=== PATIENT | female | born 1950 | race Caucasian/White ===

== ENCOUNTER 2024-08-23 14:39 | Inpatient (IN) | payer OTHER ==
[~2024-08-23] VITALS: Ht 157.5 cm; Wt 101.7 kg
--- NOTE | 2024-08-23 15:43 | ED.PDOC ---
General HPI Comments 74 y/o F, with PMHx of bladder cancer, HTN, and COPD presents to the ED for CC of s/p operative complications. Patient relays, that she had a bladder procedure done by on Friday (08/18/24); and has had urinary retention with associated blood clots. Patient reports, that she currently has a Yee Catheter however, it is not emptying. Patient complains of current 4/10 pain. Patient denies nausea, vomiting, back pain, abdominal pain, or abdominal distension. No other symptoms or modifying factors present at this time. Chief Complaint: Urinary Time Seen by MD: 15:35 Reviewed notes: Nurses Notes, Medications, Allergies Allergies: Coded Allergies: NO KNOWN ALLERGIES (Unverified , 08/23/24) Information Source: Patient Mode of Arrival: Wheelchair Severity: Moderate Timing: Days Duration: Since onset Prehospital treatment: None Onset: Spontaneous Symptoms: Hematuria, Inability to void History of: Recent post-op Location: None Modifying factors: None associated signs and symptoms: Hematuria Past Medical History PAST MEDICAL HISTORY: Cancer, COPD, HTN Surgical History: Tubal Ligation AIR TESTER History: Denies all AIR TESTER Hx Family History Family History: Unknown Social History Smoker: Non-Smoker Alcohol: Denies ETOH Use Drugs: Denies Drug Use Lives In: Home Constitutional: denies: chills, diaphoresis, fatigue, fever, malaise, sweats, weakness, others EENTM: denies: blurred vision, double vision, ear bleeding, ear discharge, ear drainage, ear pain, ear ringing, eye pain, eye redness, hearing loss, mouth pain, mouth swelling, nasal discharge, nose bleeding, nose congestion, nose pain, photophobia, tearing, throat pain, throat swelling, voice changes, others Respiratory: denies: cough, hemoptysis, orthopnea, SOB at rest, shortness of breath, SOB with excertion, stridor, wheezing, others Cardiovascular: denies: chest pain, dizzy spells, diaphoresis, Dyspnea on exertion, edema, irregular heart beat, left arm pain, lightheadedness, palpitations, PND, syncope, others Gastrointestinal: denies: abdomen distended, abdominal pain, blood streaked bowels, constipated, diarrhea, dysphagia, difficulty swallowing, hematemesis, melena, nausea, poor appetite, poor fluid intake, rectal bleeding, rectal pain, vomiting, others Genitourinary: reports: hematuria, others (urinary retention); denies: abnormal vagina bleeding, burning, dyspareunia, dysuria, flank pain, frequency, incontinence, pain, , vagina discharge, urgency Neurological: denies: dizziness, fainting, headache, left sided numbness, left sided weakness, numbness, paresthesia, pre-existing deficit, right sided numbness, right sided weakness, seizure, speech problems, tingling, tremors, weakness, others Musculoskeletal: denies: back pain, gout, joint pain, joint swelling, muscle pain, muscle stiffness, neck pain, others Integumetry: denies: bruises, change in color, change in hair/nails, dryness, laceration, lesions, lumps, rash, wounds, others Allergic/Immunocompromised: denies: Difficulty Healing, Frequent Infections, Hives, Itching, others Hematologic/Lymphatic: denies: anemia, blood clots, easy bleeding, easy bruising, swollen glands, others Endocrine: denies: excessive hunger, excessive sweating, excessive thirst, excessive urination, flushing, intolerance to cold, intolerance to heat, unexplained weight gain, unexplained weight loss, others Psychiatric: denies: anxiety, bipolar disorder, depression, hopeless, panic disorder, schizophrenia, sleepless, suicidal, others All Other Systems: Reviewed and Negative Physical Exam General Appearance: Moderate Distress, Obese HEENT: Normal ENT Inspection, Pharynx Normal, TMs Normal Neck: Full Range of Motion, Non-Tender, Normal, Normal Inspection Respiratory: Chest Non-Tender, Lungs Clear, No Accessory Muscle Use, No Respiratory Distress, Normal Breath Sounds Cardiovascular: No Edema, No JVD, No Murmur, No Gallop, Normal Peripheral Pulses, Regular Rate/Rhythm Breast Exam: Deferred Gastrointestinal: No Organomegaly, No Pulsatile Mass, Normal Bowel Sounds, Soft, Suprapubic, Tenderness Genitalia: Deferred Pelvic: Deferred Rectal: Deferred Extremities: No calf tenderness, Normal capillary refill, Normal inspection, Normal range of motion, Non-tender, No pedal edema Musculoskeletal : Apperance: Normal Neurologic: Alert, shipping and receiving assistant II-XII nml as Tested, No Motor Deficits, Normal Affect, Normal Mood, No Sensory Deficits Cerebellar Function: Normal Reflexes: Normal Skin: Dry, Normal Color, Warm Lymphatic: No Adenopathy Was a procedure done? Was a procedure done?: No Differential Diagnosis Kidney stone (Female): Pancreatitis, Urinary obstruction, Urolithiasis Urinary Problem (Female): Post-op complication X-Ray, Labs, Meds, VS Vital Signs Date Time Temp Pulse Resp B/P (MAP) Pulse Ox O2 Delivery O2 Flow Rate FiO2 08/23/24 19:06 98.7 74 16 164/90 (114) 92 98.7 08/23/24 17:08 99.0 70 16 152/89 (110) 93 99.0 08/23/24 15:19 98.0 68 18 100/61 (74) 92 98.0 08/23/24 15:19 Room Air 0 Lab Test 08/23/24 15:35 Range/Units White Blood Count 10.2 4.4-10.8 10^3/uL Red Blood Count 4.36 4.0-5.20 10^6/uL Hemoglobin 13.6 12.2-16.2 g/dL Hematocrit 39.7 36.0-46.0 % Mean Corpuscular Volume 91.2 80.0-100.0 fL Mean Corpuscular Hemoglobin 31.2 28.0-32.0 pg Mean Corpuscular Hemoglobin Concent 34.2 32.0-36.0 g/dL Red Cell Distribution Width 13.5 11.8-14.3 % Platelet Count 203 140-450 10^3/uL Mean Platelet Volume 7.7 6.9-10.8 fL Neutrophils (%) (Auto) 72.6 37.0-80.0 % Lymphocytes (%) (Auto) 13.3 10.0-50.0 % Monocytes (%) (Auto) 12.1 H 0.0-12.0 % Eosinophils (%) (Auto) 1.4 0.0-7.0 % Basophils (%) (Auto) 0.6 0.0-2.0 % Neutrophils # (Auto) 7.4 1.6-8.6 10 ^3/uL Lymphocytes # (Auto) 1.3 0.4-5.4 10 ^3/uL Monocytes # (Auto) 1.2 0-1.3 10 ^3/uL Eosinophils # (Auto) 0.1 0-0.8 10 ^3/uL Basophils # (Auto) 0.1 0-0.2 10 ^3/uL Nucleated Red Blood Cells 0.0 % Sodium Level 140 136-145 mmol/L Potassium Level 3.6 3.5-5.1 mmol/L Chloride Level 106 98-107 mmol/L Carbon Dioxide Level 26 20-31 mmol/L Anion Gap 8 5-15 Blood Urea Nitrogen 17 9-23 mg/dL Creatinine 1.26 H 0.550-1.02 mg/dL Glomerular Filtration Rate Calc 45 >90 mL/min BUN/Creatinine Ratio 13.5 10.0-20.0 Serum Glucose 122 H 74-106 mg/dL Calcium Level 10.3 8.7-10.4 mg/dL Time of 1ST Reevaluation: 14:05 Reevaluation 1ST: Unchanged Patient Education/Counseling: Diagnosis, Treatment, Prognosis Family Education/Counseling: No Family Present Departure 1 Departure Time of Disposition: 21:47 Impression: Primary Impression: Yee catheter in place on admission Additional Impressions: H/O transurethral resection of bladder tumor (TURBT) Intractable abdominal pain Urinary retention Disposition: ADMITTED INPATIENT Admit to: Med Surg Condition: Fair Critical Care Note Critical Care Time?: No Stability Stability form required: Yes Unstable for transfer: ED Physician Assesment (Clinical assesment) Heart Score Heart Score: Heart Score Response (Comments) Value History N/A 0 EKG N/A 0 Age N/A 0 Risk Factors N/A 0 Troponin N/A 0 Total 0 I personally scribed for KIANA UGALDE MD ([email or web address]) on 08/23/24 at 15:43. Electronically submitted by Patricia High ([email or web address]). I personally scribed for KIANA UGALDE MD ([email or web address]) on 08/23/24 at 15:56. Electronically submitted by Patricia High [email or web address]). KIANA UGALDE MD August 23, 2024 15:43
[2024-08-23 15:47] LABS: Basophils # (auto) 0.1 10 ^3/uL (0-0.2); Basophils % (auto) 0.6 % (0.0-2.0); Eosinophils # (auto) 0.1 10 ^3/uL (0-0.8); Eosinophils % (auto) 1.4 % (0.0-7.0); Hematocrit 39.7 % (36.0-46.0); Hemoglobin 13.6 g/dL (12.2-16.2); Lymphocytes # (auto) 1.3 10 ^3/uL (0.4-5.4); Lymphocytes % (auto) 13.3 % (10.0-50.0); Mean Corpuscular Hemoglobin 31.2 pg (28.0-32.0); Mean Corpuscular Hgb Conc. 34.2 g/dL (32.0-36.0); Mean Corpuscular Volume 91.2 fL (80.0-100.0); Monocytes # (auto) 1.2 10 ^3/uL (0-1.3); Monocytes % (auto) 12.1 % (0.0-12.0); Neutrophils # (auto) 7.4 10 ^3/uL (1.6-8.6); Neutrophils % (auto) 72.6 % (37.0-80.0); Platelet Count (auto) 203 10^3/uL (140-450); Red Blood Cells 4.36 10^6/uL (4.0-5.20); Red Cell Distribution Width 13.5 % (11.8-14.3); White Blood Cell 10.2 10^3/uL (4.4-10.8)
[2024-08-23 15:59] LABS: Chloride 106 mmol/L (98-107); Potassium 3.6 mmol/L (3.5-5.1); Sodium 140 mmol/L (136-145)
[2024-08-23 16:00] LABS: Anion Gap 8 (5-15); Calcium 10.3 mg/dL (8.7-10.4); Carbon Dioxide 26 mmol/L (20-31)
[2024-08-23 16:05] LABS: BUN/Creatinine Ratio 13.5 (10.0-20.0); Blood Urea Nitrogen 17 mg/dL (9-23); Glucose 122 mg/dL (74-106)
--- NOTE | 2024-08-23 17:28 | DVHINCON2 ---
Date of service: August 23, 2024 Referring Physician ER MD Reason for Consultation gross hematuria History of Present Illness History Source: Patient, RN Notes, MD Notes, Old Records Exam Limitations: No limitations HPI 74 yo female s/p TURBT with persistent gross hematuria catheter in place. She is c/o pelvic pain. Home Meds Reported Medications Hydrocodone-Acetaminophen (Hydrocodone Bitartrate/AC 5-325 mg) 1 Tab Tab, 1 TAB PO Q6HP PRN for PAIN SCALE 1 THRU 6, TAB 08/24/24 Fluticasone-Salmeterol (Fluticasone Propionate/SA 250-50 Mcg/Dose) 1 Aer Aer, 1 PUFF INH BID 08/24/24 Albuterol Sulfate (Albuterol Sulfate Hfa) 108 Mcg/Act Aer, INH 08/24/24 Alendronate Sodium (Alendronate Sodium) 70 Mg Tab, 1 TAB PO QWEEKLY 08/24/24 Ergocalciferol (Vitamin D) 50,000 Unit Cap, 1 CAP PO QWEEKLY 08/24/24 Fluticasone-Salmeterol (Wixela Inhub 250-50 Mcg/Dose) 1 Aer Aer, 1 PUFF INH BID 08/24/24 Atorvastatin Calcium (ATORVASTATIN CALCIUM) 20 Mg Tab, 1 TAB PO DAILY 08/24/24 Hctz (Hydrochlorothiazide) 25 Mg Tab, 1 TAB PO DAILY 08/24/24 Ciprofloxacin Hcl (Ciprofloxacin Hcl) 500 Mg Tab, 1 TAB PO 08/24/24 Review of Systems Gastrointestinal: Abdominal Pain Genitourinary: Hematuria, Pain H&P Exam Vital Signs Vital Signs Date Time Temp Pulse Resp B/P (MAP) Pulse Ox O2 Delivery O2 Flow Rate FiO2 08/23/24 17:08 99.0 70 16 152/89 (110) 93 99.0 08/23/24 15:19 Room Air 0 General Appeara: Well developed, Well nourished, Normal Appearance, Mild distress, Obese Neuro/Mental St: Alert, Oriented Appearance: Appropriate appearance, Appropriate insight Skin Exam: Normal inspection, Normal color, Warm/dry Labs/Xrays Labs Test 08/23/24 15:35 Range/Units White Blood Count 10.2 4.4-10.8 10^3/uL Red Blood Count 4.36 4.0-5.20 10^6/uL Hemoglobin 13.6 12.2-16.2 g/dL Hematocrit 39.7 36.0-46.0 % Mean Corpuscular Volume 91.2 80.0-100.0 fL Mean Corpuscular Hemoglobin 31.2 28.0-32.0 pg Mean Corpuscular Hemoglobin Concent 34.2 32.0-36.0 g/dL Red Cell Distribution Width 13.5 11.8-14.3 % Platelet Count 203 140-450 10^3/uL Mean Platelet Volume 7.7 6.9-10.8 fL Neutrophils (%) (Auto) 72.6 37.0-80.0 % Lymphocytes (%) (Auto) 13.3 10.0-50.0 % Monocytes (%) (Auto) 12.1 H 0.0-12.0 % Eosinophils (%) (Auto) 1.4 0.0-7.0 % Basophils (%) (Auto) 0.6 0.0-2.0 % Neutrophils # (Auto) 7.4 1.6-8.6 10 ^3/uL Lymphocytes # (Auto) 1.3 0.4-5.4 10 ^3/uL Monocytes # (Auto) 1.2 0-1.3 10 ^3/uL Eosinophils # (Auto) 0.1 0-0.8 10 ^3/uL Basophils # (Auto) 0.1 0-0.2 10 ^3/uL Nucleated Red Blood Cells 0.0 % Sodium Level 140 136-145 mmol/L Potassium Level 3.6 3.5-5.1 mmol/L Chloride Level 106 98-107 mmol/L Carbon Dioxide Level 26 20-31 mmol/L Anion Gap 8 5-15 Blood Urea Nitrogen 17 9-23 mg/dL Creatinine 1.26 H 0.550-1.02 mg/dL Glomerular Filtration Rate Calc 45 >90 mL/min BUN/Creatinine Ratio 13.5 10.0-20.0 Serum Glucose 122 H 74-106 mg/dL Calcium Level 10.3 8.7-10.4 mg/dL Assessment/Plan Problem List: (1) Yee catheter in place on admission (2) Gross hematuria (3) H/O transurethral resection of bladder tumor (TURBT) Plan Cystoscopy with clot evacuation and fulguration Plan discussed with: Patient, Other DENISE CARRASCO NP August 23, 2024 17:28 MAURICE JOSE MD August 24, 2024 14:12
--- NOTE | 2024-08-23 23:40 | DVHHP2 ---
History of Present Illness History of Present Illness Patient is 74 years old female with a past medical history of bladder carcinoma, hypertension, COPD, status post TURP came with a complaint of hematuria. P sariah reported she had bladder surgical procedure at Dr. Suh's office due to bladder carcinoma and patient was put on Yee's catheter on Friday patient went to see Dr. Suh and when she had hematuria patient went to [facility] where they get it patient's bladder. Today patient went to see Dr. Mcarthur at his office follow up and she had hematuria and Dr. Mcarthur recommended patient to go to ER. Reported some suprapubic pain mild 4/10. Patient did not any fever, chest pain, shortness of breaths, nausea or vomiting dysarthria or change in vision or acute rash. Initial lab workup revealed serum creatinine 1.26, GFR 45. Past Medical History bladder carcinoma, hypertension, COPD, status post TURP Past Surgical History TURP, tobacco ligation, hernia repair for umbilical hernia, Family History No significant family history as per patient Past Social History Patient lives with the , ex-smoker, occasional alcoholic, denies drug abuse Review of Systems Review of Systems Allergy- NKDA Patient was seen today at the bedside. Cardiovascular- deny acute chest pain or shortness of breath or cough or palpitation Respiratory denies cough or short of breath or wheezing Gastrointestinal- denies any rectal bleeding, nausea or vomiting Musculoskeletal-denies acute joint swelling or tenderness or redness Neurological- denies acute dysarthria, dysphagia, change in vision Psychiatry- denies depression or SI or HI Skin- denies acute rash or purpura Allergies: Coded Allergies: NO KNOWN ALLERGIES (Unverified , 08/23/24) Medications Current Medications Medications Dose Ordered Sig/Myriam Route Start Time Stop Time Status Last Admin Dose Admin Sodium Chloride 10 ml Q8HR IV 08/24/24 06:00 UNV Sodium Chloride 1,000 ml @ 120 mls/hr Q8H20M IV 08/23/24 23:45 UNV Docusate Sodium 100 mg BIDPRN PRN PO 08/23/24 23:45 UNV Acetaminophen 650 mg Q6HP PRN PO 08/23/24 23:45 UNV Morphine Sulfate 2 mg Q4HPRN PRN IV 08/23/24 23:45 UNV Nitroglycerin 0.4 mg Q5MINP PRN SL 08/23/24 23:45 UNV Morphine Sulfate 2 mg Q30M PRN IV 08/23/24 23:45 UNV Exam Vital Signs Vital Signs Date Time Temp Pulse Resp B/P (MAP) Pulse Ox O2 Delivery O2 Flow Rate FiO2 08/23/24 19:06 98.7 74 16 164/90 (114) 92 98.7 08/23/24 15:19 Room Air 0 Exam General examination- HEENT- PEERLA, no acute nasal discharge Cardiovascular- S1-S2 audible, rate and rhythm regular, no murmur Respiratory- CTAB, no wheeze or rhonchi Gastrointestinal-nontender, bowel sound+. Nondistended Musculoskeletal-no acute joint swelling or tenderness or redness Lower extremity- bilateral leg edema+ Neurological- cranial nerves intact, no acute dysarthria or dysphagia Psychiatry- denies depression or SI or HI Skin- no acute rash or purpura Labs/Xrays Labs Test 08/23/24 15:35 Range/Units White Blood Count 10.2 4.4-10.8 10^3/uL Red Blood Count 4.36 4.0-5.20 10^6/uL Hemoglobin 13.6 12.2-16.2 g/dL Hematocrit 39.7 36.0-46.0 % Mean Corpuscular Volume 91.2 80.0-100.0 fL Mean Corpuscular Hemoglobin 31.2 28.0-32.0 pg Mean Corpuscular Hemoglobin Concent 34.2 32.0-36.0 g/dL Red Cell Distribution Width 13.5 11.8-14.3 % Platelet Count 203 140-450 10^3/uL Mean Platelet Volume 7.7 6.9-10.8 fL Neutrophils (%) (Auto) 72.6 37.0-80.0 % Lymphocytes (%) (Auto) 13.3 10.0-50.0 % Monocytes (%) (Auto) 12.1 H 0.0-12.0 % Eosinophils (%) (Auto) 1.4 0.0-7.0 % Basophils (%) (Auto) 0.6 0.0-2.0 % Neutrophils # (Auto) 7.4 1.6-8.6 10 ^3/uL Lymphocytes # (Auto) 1.3 0.4-5.4 10 ^3/uL Monocytes # (Auto) 1.2 0-1.3 10 ^3/uL Eosinophils # (Auto) 0.1 0-0.8 10 ^3/uL Basophils # (Auto) 0.1 0-0.2 10 ^3/uL Nucleated Red Blood Cells 0.0 % Sodium Level 140 136-145 mmol/L Potassium Level 3.6 3.5-5.1 mmol/L Chloride Level 106 98-107 mmol/L Carbon Dioxide Level 26 20-31 mmol/L Anion Gap 8 5-15 Blood Urea Nitrogen 17 9-23 mg/dL Creatinine 1.26 H 0.550-1.02 mg/dL Glomerular Filtration Rate Calc 45 >90 mL/min BUN/Creatinine Ratio 13.5 10.0-20.0 Serum Glucose 122 H 74-106 mg/dL Calcium Level 10.3 8.7-10.4 mg/dL Assessment/Plan Assessment/Plan Assessment and plan Post surgical complication, hematuria Status post TURP History of bladder carcinoma Hypertension Hyperlipidemia COPD Plan IV fluid as prescribed Ordered Ceftriaxone Ordered Atorvastatin Scheduled for urological intervention tomorrow Continue pain medication as prescribed Nebulization PRN Pending urine culture Goals of care, Code status ; discussed with >15 minutes PUD prophylaxis: Pantoprazole DVT prophylaxis: Patient has hematuria Plan discussed with Dr. Sanchez , nursing staff, Total time spent on patient evaluation, chart review, assessment and plan, discussion discussion >35 minutes Plan discussed with: Patient, Other (RN) My Orders Orders - BECKA DEY RESIDENT Procedure Category Date Status Time Admit ADMIT 08/23/24 Transmitted 23:35 Code Status CODE 08/23/24 Transmitted 23:35 Sodium Chloride Lock PHA 08/24/24 Logged (Saline Lock Ns) 06:00 Sodium Chloride 0.9% PHA 08/23/24 Logged 23:45 Docusate Sodium PHA 08/23/24 Logged Capsule (Colace 23:45 Acetaminophen Tablet PHA 08/23/24 Logged (Tylenol Tablet) 23:45 Morphine Sulfate PHA 08/23/24 Logged Injection 23:45 Nitroglycerin PHA 08/23/24 Logged Sublingual (Ntrostat 23:45 Morphine Sulfate PHA 08/23/24 Logged Injection 23:45 Oxygen By Nasal RT 08/23/24 Transmitted Cannula 23:35 Stat Ekg For Chest GURWINDER 08/23/24 In Process Pain 23:35 Notify Of Changes GRUWINDER 08/23/24 In Process From Base 23:35 Senior Network Administrator For [facility] 08/23/24 In Process 24 Hours 23:35 Emergency Dysrhythmia [facility] 08/23/24 In Process Protocol 23:35 Rhythm Strips Once [facility] 08/23/24 In Process Every Shift 23:35 Ceftriaxone Ivpb PHA 08/23/24 Verified Rocephin 23:45 Ceftriaxone Ivpb PHA 08/23/24 Verified Rocephin 23:45 Pantoprazole PHA 08/24/24 Verified (Protonix) 10:00 Pantoprazole [facility] 08/23/24 Verified (Protonix) 23:45 Date of Service: August 23, 2024 Billing Provider: DEN SANCHEZ MD Common Visit Codes: [id number] INP/OBS CARE (HIGH) Secondary Visit Codes: [id number] CARE PLAN 30 MINUTES BECKA DEY RESIDENT August 23, 2024 23:39
[2024-08-23] MEDS ORDERED: NITROGLYCERIN 0.4 MG SL TAB SL PRN (23:45)
[2024-08-23] MEDS ORDERED: ACETAMINOPHEN 325 MG TAB PO PRN (23:45)
[2024-08-23] MEDS ORDERED: MORPHINE SULFATE INJ 2 MG/ml SYRG IV PRN (23:45)
[2024-08-23] MEDS ORDERED: cefTRIAXone 1GM/50ML D5W 50 ML IV ONE (23:45)
[2024-08-24] VITALS (12 sets, daily range): BP systolic 107–127; BP diastolic 45–72; PULSE 60–90; RESP 12–20; TEMP 97.6–98.4; O2SAT 90–97
[2024-08-24] MEDS: cefTRIAXone 2GM/50ML D5W 50 ML IV ONE (02:29)
[2024-08-24] MEDS: PANTOPRAZOLE 40 MG/10 ML VIAL INJ IV ONE (02:29)
[2024-08-24] MEDS: ONDANSETRON HCL 4 MG/2 ML VIAL IV ONE (02:29)
[2024-08-24] MEDS: cefTRIAXone 1GM/50ML D5W 100 ML IV ONE (02:30)
[2024-08-24] MEDS: SODIUM CHLORIDE 0.9% 1,000 ML IV SCH (02:30)
[2024-08-24] MEDS: MORPHINE SULFATE INJ 2 MG/ml SYRG IV PRN (03:00)
[2024-08-24] MEDS ORDERED: ALBUTEROL SULF 2.5 MG/0.5ML(0.5%) NEB SOLN NEB PRN (03:45)
[2024-08-24] MEDS ORDERED: IPRATROPIUM BROM 0.5 MG/2.5ML INH SOL NEB PRN (03:45)
[2024-08-24] MEDS ORDERED: FLUT1AER6 INH (04:33)
[2024-08-24] MEDS ORDERED: FLUT1AER12 INH (04:33)
[2024-08-24] MEDS ORDERED: ERGO1CAP12 PO (04:33)
[2024-08-24] MEDS ORDERED: ALBU108A5 INH (04:33)
[2024-08-24] MEDS ORDERED: HYDR25TA5 PO (04:33)
[2024-08-24] MEDS ORDERED: ATOR20TA50 PO (04:33)
[2024-08-24] MEDS ORDERED: HYDR-4902 PO (04:33)
[2024-08-24] MEDS ORDERED: CIPR500T4 PO (04:33)
[2024-08-24] MEDS ORDERED: ALEN70TA74 PO (04:33)
[2024-08-24] MEDS: SODIUM CHLOR 0.9% PF (SALINE LOCK) 10ML VIAL/SYR IV SCH (05:16)
[2024-08-24 09:44] LABS: Basophils # (auto) 0 10 ^3/uL (0-0.2); Basophils % (auto) 0.3 % (0.0-2.0); Eosinophils # (auto) 0.1 10 ^3/uL (0-0.8); Eosinophils % (auto) 1.3 % (0.0-7.0); Hematocrit 40.6 % (36.0-46.0); Hemoglobin 13.5 g/dL (12.2-16.2); Lymphocytes # (auto) 1.6 10 ^3/uL (0.4-5.4); Lymphocytes % (auto) 18.4 % (10.0-50.0); Mean Corpuscular Hemoglobin 30.6 pg (28.0-32.0); Mean Corpuscular Hgb Conc. 33.2 g/dL (32.0-36.0); Mean Corpuscular Volume 92.3 fL (80.0-100.0); Monocytes # (auto) 1.1 10 ^3/uL (0-1.3); Monocytes % (auto) 12.2 % (0.0-12.0); Neutrophils # (auto) 5.9 10 ^3/uL (1.6-8.6); Neutrophils % (auto) 67.8 % (37.0-80.0); Nucleated Red Blood Cells % 0.1 %; Platelet Count (auto) 218 10^3/uL (140-450); Red Cell Distribution Width 13.5 % (11.8-14.3); White Blood Cell 8.7 10^3/uL (4.4-10.8)
[2024-08-24 09:54] LABS: Alanine Aminotransferase 21 U/L (7-40); Albumin 4.3 g/dL (3.2-4.8); Alkaline Phosphatase 60 U/L (46-116); Anion Gap 9 (5-15); BUN/Creatinine Ratio 17.4 (10.0-20.0); Bilirubin, Total 0.6 mg/dL (0.2-1.0); Blood Urea Nitrogen 15 mg/dL (9-23); Calcium 10.2 mg/dL (8.7-10.4); Carbon Dioxide 27 mmol/L (20-31); Chloride 107 mmol/L (98-107); Magnesium 2.5 mg/dL (1.6-2.6); Potassium 3.7 mmol/L (3.5-5.1); Sodium 143 mmol/L (136-145); Total Protein 6.8 g/dL (5.7-8.2)
[2024-08-24 09:55] LABS: Aspartate Aminotransferase 11 U/L (13-40); Glucose 107 mg/dL (74-106)
[2024-08-24] MEDS: PANTOPRAZOLE 40 MG/10 ML VIAL INJ IV SCH (10:00)
[2024-08-24 10:10] LABS: Urine Bacteria None Seen /hpf (None Seen)
[2024-08-24 10:30] LABS: Urine Amorphous Crystal FEW /hpf (None Seen); Urine Blood 3+ /uL (Negative); Urine Clarity Ex.Turbid (Clear); Urine Color Light-Orange (Yellow); Urine Mucus FEW (None Seen); Urine Protein, UAD 1+ (Negative); Urine Squamous Epithelial Cell FEW /hpf (<5); Urine Urobilinogen Normal (Negative); Urine WBC 115 /HPF (0-5); Urine WBC Clumps PRESENT /hpf (None Seen); Urine pH 5.5 (5.0-9.0)
[2024-08-24] MEDS ORDERED: PROPOFOL 10 MG/ML 20 ML IV ONE (11:01)
[2024-08-24] MEDS: CIPROFLOXACIN 400MG/200ML 200 ML IV ONE (11:38)
[2024-08-24] MEDS ORDERED: fentaNYL CITRATE 100 MCG/2 ML VL ONE (13:45)
[2024-08-24] MEDS ORDERED: ePHEDrine SULFATE 50 MG/ML AMP ONE (14:40)
--- NOTE | 2024-08-24 15:01 | DVHNC2 ---
Procedure - OPERATIVE REPORT Pre-op. Diagnosis: Hematuria Clot Retention Bladder cancer, s/p TURBT Post-op. Diagnosis: Same as pre-op diagnosis Operation: Cystoscopy, Clot Evacuation Cystoscopy with fulguration Anesthesia: General Indications: Patient underwent TURBT with Mitomycin C instillation on 08/18/24. P ostoperatively, mi was maintained for CBI. Informed consent obtained. All questions were encouraged and answered. Details of Procedure: Patient was brought to OR and placed in supine position in the OR table. Anesthesia was induced and patient was placed in lithotomy position, prepped and draped in sterile surgical fashion. Using a 26 Fr Resectoscope the bladder was entered with the finding of large amount of clots, that were irrigated. The bladder showed no FB, new tumors or stones. Bleeding sites were found in the bed of the resected tumor sites on right lateral wall and fulgurated. Resectoscope was removed when complete evacuation was accomplished. Patient was placed in supine position, anesthesia was reversed, patient was extubated and transferred awake and in stable conditions to recovery room. Specimens: Blood clots Complications: None Findings: As above EBL < 100 ml MAURICE JOSE MD August 24, 2024 15:01
--- NOTE | 2024-08-24 16:42 | DVHPN2 ---
Subjective in bed resting Changes from previous H/P or p: No Changes Objective Vitals Vital Signs Date Time Temp Pulse Resp B/P (MAP) Pulse Ox O2 Delivery O2 Flow Rate FiO2 08/24/24 15:34 63 16 138/74 (95) 99 08/24/24 15:04 97.4 97.4 08/24/24 15:04 Mask 0 08/24/24 15:04 97 Intake/Output Intake and Output 08/24/24 07:00 Intake Total 50 ml Balance 50 ml Intake Oral 0 ml IV Total 50 ml General Appearance: Alert, Oriented X3 Lungs: Clear to auscultation Cardiovascular: Regular rate, Normal S1, Normal S2 Abdomen: Normal bowel sounds Medications Current Medications Medications Dose Ordered Sig/Myriam Route Start Time Stop Time Status Last Admin Dose Admin Sodium Chloride 10 ml Q8HR IV 08/24/24 06:00 08/24/24 05:16 10 ML Sodium Chloride 1,000 ml @ 120 mls/hr Q8H20M IV 08/23/24 23:45 08/24/24 08:05 120 MLS/HR Docusate Sodium 100 mg BIDPRN PRN PO 08/23/24 23:45 Acetaminophen 650 mg Q6HP PRN PO 08/23/24 23:45 Morphine Sulfate 2 mg Q4HPRN PRN IV 08/23/24 23:45 08/24/24 03:00 2 MG Nitroglycerin 0.4 mg Q5MINP PRN SL 08/23/24 23:45 Morphine Sulfate 2 mg Q30M PRN IV 08/23/24 23:45 Pantoprazole Sodium 40 mg DAILY IV 08/24/24 10:00 08/24/24 10:00 40 MG Atorvastatin Calcium 20 mg HS PO 08/24/24 22:00 Albuterol 2.5 mg Q6HPRN PRN NEB 08/24/24 03:45 Ipratropium [place] 0.5 mg Q6HPRN PRN NEB 08/24/24 03:45 Laboratory Results Laboratory Tests 08/24/24 09:12 Chemistry Test 08/24/24 09:12 Albumin 4.3 g/dL (3.2-4.8) Calcium Level 10.2 mg/dL (8.7-10.4) Magnesium Level 2.5 mg/dL (1.6-2.6) Total Protein 6.8 g/dL (5.7-8.2) LFT Test 08/24/24 09:12 Alanine Aminotransferase (ALT) 21 U/L (7-40) Alkaline Phosphatase 60 U/L (46-116) Aspartate Amino Transferase (AST) 11 U/L (13-40) L Total Bilirubin 0.6 mg/dL (0.2-1.0) HgA1c, TSH Test 08/24/24 09:12 Hemoglobin A1c 5.1 % A1C (<5.7) Thyroid Stimulating Hormone (TSH) 5.13 uIU/mL (0.55-4.78) H Urinalysis Test 08/24/24 10:00 Urine Color Light-orange (Yellow) Urine Clarity Ex.turbid (Clear) Urine pH 5.5 (5.0-9.0) Urine Specific [place] 1.020 (1.001-1.035) Urine Protein 1+ (Negative) H Urine Ketones Negative (Negative) Urine Blood 3+ /uL (Negative) H Urine Nitrite Negative (Negative) Urine Bilirubin Negative (Negative) Urine Urobilinogen Normal mg/dL (Negative) Urine Leukocyte Esterase 3+ /uL (Negative) Urine RBC 424 /hpf (0 - 4) Urine WBC Clumps Present /hpf (None Seen) Urine Microscopic WBC 115 /HPF (0-5) H Urine Squamous Epithelial Cells Few /hpf (<5) Urine Amorphous Crystals Few /hpf (None Seen) Urine Bacteria None seen /hpf (None Seen) Urine Mucus Few (None Seen) Urine Glucose Normal mg/dL (Normal) Assessment/Plan Assessment/Plan Post surgical complication, hematuria Status post TURP History of bladder carcinoma Hypertension Hyperlipidemia COPD Plan IV fluid as prescribed Ordered Ceftriaxone Ordered Atorvastatin Scheduled for urological intervention today Continue pain medication as prescribed Nebulization PRN Pending urine culture Plan discussed with: Patient Date of Service: August 24, 2024 Billing Provider: LOLY DUNN MD Common Visit Codes: [id number] INP/OBS CARE(HIGH) LOLY DUNN MD August 24, 2024 16:42
[2024-08-24] MEDS: ATORVASTATIN 20 MG TAB PO SCH (21:09)
[2024-08-25 01:10] VITALS: BP 103/55; PULSE 79; RESP 20; TEMP 97.8; O2SAT 90
[2024-08-25 05:00] VITALS: BP 113/56; PULSE 84; RESP 19; TEMP 97.9; O2SAT 93
[2024-08-25 08:00] VITALS: PULSE 65; RESP 18; O2SAT 94
[2024-08-25 09:00] VITALS: BP 108/76; PULSE 63; RESP 16; TEMP 98.2; O2SAT 92
[2024-08-25] MEDS: DOCUSATE SOD 100 MG CAP PO PRN (09:00)
[2024-08-25 09:07] VITALS: O2SAT 96
[2024-08-25 13:00] VITALS: BP 135/67; PULSE 62; RESP 16; TEMP 97.9; O2SAT 90
--- NOTE | 2024-08-30 12:58 | DVHDS2 ---
Discharge Summary Date of Admission August 23, 2024 at 23:35 Date of Discharge: August 25, 2024 Labs/Diagnostic Data: Laboratory Results Test 08/24/24 10:00 08/24/24 09:12 Urine Color Light-orange (Yellow) Urine Clarity Ex.turbid (Clear) Urine pH 5.5 (5.0-9.0) Urine Specific [place] 1.020 (1.001-1.035) Urine Protein 1+ (Negative) Urine Ketones Negative (Negative) Urine Blood 3+ /uL (Negative) Urine Nitrite Negative (Negative) Urine Bilirubin Negative (Negative) Urine Urobilinogen Normal mg/dL (Negative) Urine Leukocyte Esterase 3+ /uL (Negative) Urine RBC 424 /hpf (0 - 4) Urine WBC Clumps Present /hpf (None Seen) Urine Microscopic WBC 115 /HPF (0-5) Urine Squamous Epithelial Cells Few /hpf (<5) Urine Amorphous Crystals Few /hpf (None Seen) Urine Bacteria None seen /hpf (None Seen) Urine Mucus Few (None Seen) Urine Glucose Normal mg/dL (Normal) White Blood Count 8.7 10^3/uL (4.4-10.8) Red Blood Count 4.40 10^6/uL (4.0-5.20) Hemoglobin 13.5 g/dL (12.2-16.2) Hematocrit 40.6 % (36.0-46.0) Mean Corpuscular Volume 92.3 fL (80.0-100.0) Mean Corpuscular Hemoglobin 30.6 pg (28.0-32.0) Mean Corpuscular Hemoglobin Concent 33.2 g/dL (32.0-36.0) Red Cell Distribution Width 13.5 % (11.8-14.3) Platelet Count 218 10^3/uL (140-450) Mean Platelet Volume 7.9 fL (6.9-10.8) Neutrophils (%) (Auto) 67.8 % (37.0-80.0) Lymphocytes (%) (Auto) 18.4 % (10.0-50.0) Monocytes (%) (Auto) 12.2 % (0.0-12.0) Eosinophils (%) (Auto) 1.3 % (0.0-7.0) Basophils (%) (Auto) 0.3 % (0.0-2.0) Neutrophils # (Auto) 5.9 10 ^3/uL (1.6-8.6) Lymphocytes # (Auto) 1.6 10 ^3/uL (0.4-5.4) Monocytes # (Auto) 1.1 10 ^3/uL (0-1.3) Eosinophils # (Auto) 0.1 10 ^3/uL (0-0.8) Basophils # (Auto) 0 10 ^3/uL (0-0.2) Nucleated Red Blood Cells 0.1 % Sodium Level 143 mmol/L (136-145) Potassium Level 3.7 mmol/L (3.5-5.1) Chloride Level 107 mmol/L (98-107) Carbon Dioxide Level 27 mmol/L (20-31) Anion Gap 9 (5-15) Blood Urea Nitrogen 15 mg/dL (9-23) Creatinine 0.86 mg/dL (0.550-1.02) Glomerular Filtration Rate Calc 71 mL/min (>90) BUN/Creatinine Ratio 17.4 (10.0-20.0) Serum Glucose 107 mg/dL (74-106) Hemoglobin A1c 5.1 % A1C (<5.7) Calcium Level 10.2 mg/dL (8.7-10.4) Magnesium Level 2.5 mg/dL (1.6-2.6) Total Bilirubin 0.6 mg/dL (0.2-1.0) Aspartate Amino Transferase (AST) 11 U/L (13-40) Alanine Aminotransferase (ALT) 21 U/L (7-40) Alkaline Phosphatase 60 U/L (46-116) Total Protein 6.8 g/dL (5.7-8.2) Albumin 4.3 g/dL (3.2-4.8) Thyroid Stimulating Hormone (TSH) 5.13 uIU/mL (0.55-4.78) Other Laboratory Tests 08/24/24 09:12 Brief Hx & Hospital Course: Patient is 74 years old female with a past medical history of bladder carcinoma, hypertension, COPD, status post TURP came with a complaint of hematuria. Jose Miguel rolle reported she had bladder surgical procedure at Dr. Suh's office due to bladder carcinoma and patient was put on Yee's catheter on Friday patient went to see Dr. Suh and when she had hematuria patient went to [facility] where they get it patient's bladder. Today patient went to see Dr. Mcarthur at his office follow up and she had hematuria and Dr. Mcarthur recommended patient to go to ER. Reported some suprapubic pain mild 4/10. Patient did not any fever, chest pain, shortness of breaths, nausea or vomiting dysarthria or change in vision or acute rash. Initial lab workup revealed serum creatinine 1.26, GFR 45. Hematuria resolved and had TURB and bleeding had stopped Condition at Discharge: Good Final Diagnosis/Problems List hematuria Discharge Disposition: Home Discharge Instruct/Medications Diet: Regular Activity: No Restrictions, As Tolerated Follow Up/Referral: PCP in 7 days Medications: same medications Discharge Statement: "Patient was advised to return to the ER or call 911 if any headaches, dizziness, shortness of breath, chest pain, abdominal pain, bleeding, fevers, or worsening of medical condition. Patient was counseled about treatment plan, medications, possible side effects, patientverbalized understanding. All questions were answered to the best of my ability. This discharge took greater then 30 minutes in planning, reviewing documentation, counseling the patient, and discussing with other team members." ASSESSMENT ASSESSMENT Assessment hematuria Date of Service: August 25, 2024 Billing Provider: LOLY DUNN MD Common Visit Codes: 00052-YKW/OBS DISCH DAY >30min LOLY DUNN MD August 30, 2024 12:58
== END 2024-08-25 17:30 | disposition home or self-care (01) | DRG 670 ==
LOC: ER 14:49 → OVERFLOW 23:35 → WEST WING 08-24 03:56
PROVIDERS: ADMIT Hospitalist; ATTEND Hospitalist
PROC: 0T5B8ZZ Destruction of Bladder, Via Natural or Artificial Opening Endoscopic (ICD-10-PCS; 2024-08-24)
PROC: 0TCB8ZZ Extirpation of Matter from Bladder, Via Natural or Artificial Opening Endoscopic (ICD-10-PCS; principal; 2024-08-24 14:22)
DX: C67.9 Malignant neoplasm of bladder, unspecified (principal); T81.89XA Other complications of procedures, not elsewhere classified, initial encounter; R31.0 Gross hematuria; I10 Essential (primary) hypertension; J44.9 Chronic obstructive pulmonary disease, unspecified; E78.5 Hyperlipidemia, unspecified; Z85.51 Personal history of malignant neoplasm of bladder; Z79.899 Other long term (current) drug therapy; Z98.51 Tubal ligation status; Y83.8 Other surgical procedures as the cause of abnormal reaction of the patient, or of later complication, without mention of misadventure at the time of the procedure; Y92.89 Other specified places as the place of occurrence of the external cause
CPT/HCPCS: 36415; 80048; 80053; 81001; 83036; 83735; 84443; 85025; 87081; 87086; A4344; G0378; J2405; J2470; J2704